=== PATIENT | female | born 1950 | race Caucasian/White ===

== ENCOUNTER 2017-11-21 16:05 | Emergency (ER) | payer OTHER ==
[~2017-11-21] VITALS: Ht 157.5 cm; Wt 59.9 kg
[2017-11-21] MEDS ORDERED: AVAPRO300 MG (16:42)
[2017-11-21] MEDS ORDERED: NORVASC2.5 MG (16:42)
== END 2017-11-21 21:34 | disposition home or self-care (01) ==
LOC: ER 16:05
DX: K57.30 Diverticulosis of large intestine without perforation or abscess without bleeding (principal); N20.0 Calculus of kidney

== ENCOUNTER 2019-07-04 05:25 | Day surgery (SDC) | payer OTHER ==
[~2019-07-04 05:25] MED LIST: AVAPRO300 MG; NORVASC2.5 MG; SINGULAIR10 MG PO
[2019-07-04] MEDS ORDERED: ALEVE220 M1 PO (10:12)
[2019-07-04] MEDS ORDERED: ULTRACET PO (10:12)
[2019-07-04] MEDS ORDERED: DUI500 PO (10:12)
== END 2019-07-04 12:35 | disposition home or self-care (01) ==
LOC: CIR.AMB 05:25
DX: S83.231A Complex tear of medial meniscus, current injury, right knee, initial encounter (principal); S83.271A Complex tear of lateral meniscus, current injury, right knee, initial encounter; M65.861 Other synovitis and tenosynovitis, right lower leg; M22.41 Chondromalacia patellae, right knee